=== PATIENT | male | born 1935 | race Caucasian/White ===

== ENCOUNTER 2018-02-13 13:27 | Inpatient (IN) | payer MEDICARE, OTHER, MEDICAID ==
[2018-02-13] MEDS: IPRATROPIUM (NEB) 0.5 MG/2.5 ML AMP INH (14:16)
[2018-02-13] MEDS: LEVALBUTEROL (NEB) 1.25 MG/0.5 ML AMP INH (14:16)
[2018-02-13 14:22] LABS: ADD MAN DIFF? NO
[2018-02-13 14:28] LABS: WHITE BLOOD COUNT 9.4 10^3/ul (4.8-10.8)
[2018-02-13 14:28] LABS: BASOPHIL # 0.1 10^3/ul (0.0-0.1); BASOPHILS % 1.4 % (0.0-2.0); EOSINOPHILS # 0.8 10^3/ul (0.0-0.5); EOSINOPHILS % 8.7 % (0.0-7.0); HEMATOCRIT 30.8 % (42.0-52.0); HEMOGLOBIN 9.9 g/dl (14.0-18.0); LYMPHOCYTES # 1.3 10^3/ul (0.8-2.9); LYMPHOCYTES % 13.7 % (15.0-51.0); MEAN CORPUSCULAR HEMOGLOBIN 30.4 pg (29.0-33.0); MEAN CORPUSCULAR HGB CONC 32.1 g/dl (32.0-37.0); MEAN CORPUSCULAR VOLUME 94.5 fl (82.0-101.0); MONOCYTE # 0.9 10^3/ul (0.3-0.9); MONOCYTES % 9.9 % (0.0-11.0); NEUTROPHIL # 6.2 10^3/ul (1.6-7.5); NEUTROPHILS % 66.1 % (39.0-77.0); PLATELET COUNT 335 10^3/UL (140-415); RED BLOOD COUNT 3.26 10^6/ul (4.70-6.10); RED CELL DISTRIBUTION WIDTH 13.9 % (11.5-14.5)
[2018-02-13 14:43] LABS: LACTIC ACID 1.4 mmol/L (0.5-2.0)
[2018-02-13 14:46] LABS: ADD UMIC YES; ALANINE AMINOTRANSFERASE 15 IU/L (13-69); ALBUMIN 4.3 g/dl (3.3-4.9); ALBUMIN/GLOBULIN RATIO 1.16; ALKALINE PHOSPHATASE 76 IU/L (42-121); ANION GAP 10 (5-13); ASPARTATE AMINO TRANSFERASE 29 IU/L (15-46); BILIRUBIN,INDIRECT 0.5 mg/dl (0-1.1); BILIRUBIN,TOTAL 0.5 mg/dl (0.2-1.3); BLOOD UREA NITROGEN 17 mg/dl (7-20); CALCIUM 9.2 mg/dl (8.4-10.2); CARBON DIOXIDE 28 mmol/L (21-31); CHLORIDE 105 mmol/L (97-110); CREATININE 1.33 mg/dl (0.61-1.24); GLUCOSE 95 mg/dl (70-220); POTASSIUM 4.4 mmol/L (3.5-5.1); SODIUM 143 mmol/L (135-144); UR ASCORBIC ACID NEGATIVE (NEGATIVE); UR BILIRUBIN (Dip) NEGATIVE (NEGATIVE); UR BLOOD (Dip) NEGATIVE (NEGATIVE); UR CLARITY CLEAR (CLEAR); UR COLOR YELLOW (YELLOW); UR GLUCOSE (Dip) NEGATIVE (NEGATIVE); UR KETONES (Dip) NEGATIVE (NEGATIVE); UR LEUKOCYTE ESTERASE (Dip) NEGATIVE Leu/ul (NEGATIVE); UR NITRITE (Dip) NEGATIVE (NEGATIVE); UR RBC 0 /HPF (0-5); UR SPECIFIC GRAVITY (Dip) 1.015 (1.003-1.030); UR TOTAL PROTEIN (Dip) 1+ mg/dl (NEGATIVE); UR UROBILINOGEN (Dip) NEGATIVE (NEGATIVE); UR WBC 0 /HPF (0-5)
[2018-02-13 14:47] LABS: INR 1.05; PROTIME 13.8 Sec (11.9-14.9); PT RATIO 1.1
[2018-02-13 14:48] LABS: PARTIAL THROMBOPLASTIN TIME 30.2 Sec (23.0-35.0)
[2018-02-13 14:59] LABS: TROPONIN-I 0.503 ng/ml (0.000-0.120)
[2018-02-13] MEDS: ASPIRIN 81 MG TAB PO (16:21)
[2018-02-13] MEDS: CEFEPIME 1GM/50 ML (PMX) 50 ML IVPB (16:21)
[2018-02-13] MEDS: VANCOMYCIN 1 GM (PMX) 250 ML IVPB (16:47)
[2018-02-13] MEDS ORDERED: NACL 0.9% 3 ML SYG IV (17:30)
[2018-02-13] MEDS ORDERED: ONDANSETRON 4 MG TAB PO (17:30)
[2018-02-13 18:05] LABS: D-DIMER 2689.49 ng/ml (<460)
[2018-02-13] MEDS ORDERED: hydrALAzine 20 MG INJ IV (18:30)
[2018-02-13] MEDS ORDERED: DILTIAZEM 25 MG INJ IV (18:30)
[2018-02-13] MEDS: AMLODIPINE 10 MG TAB PO (18:38)
[2018-02-13] MEDS: CEFTRIAXONE 1 GM/50 ML (PMX) 50 ML IVPB (19:28)
[2018-02-13 20:41] LABS: CREATINE KINASE 119 IU/L (23-200)
[2018-02-13] MEDS: LEVALBUTEROL (NEB) 0.63 MG/3 ML AMP HHN (20:44)
[2018-02-13 20:47] LABS: LACTIC ACID 2.2 mmol/L (0.5-2.0)
[2018-02-13 20:55] LABS: CK INDEX 4.3
[2018-02-13 21:03] LABS: CK-MB 5.13 ng/ml (0.0-2.4)
[2018-02-13 21:31] LABS: AADO2 Arterial 111.2 mmHg (7.0-24.0); Allen Test ACCEPTAB; Arterial Base Excess 1.1 mmol/L (-3.0-3); Arterial COHb 0.3 % (0.0-3.0); Arterial Fraction of Oxyhgb 94.4 % (93.0-99.0); Arterial HCO3 25.9 mmol/L (22.0-26.0); Arterial MetHb 0.3 % (0.0-1.5); Arterial Total Hemglobin 10.6 g/dl (12.0-18.0); Arterial pCO2 41.7 mmhg (35-45); MODE NASAL CANNULA
[2018-02-13] MEDS: AZITHROMYCIN 250 MG in SOD CHLORIDE 0.9% 250 ML IVPB (22:04)
[2018-02-13] MEDS: SOD CHLORIDE 0.9% 500 ML IV (22:04)
[2018-02-13] MEDS: IBUPROFEN 400 MG TAB PO (22:05)
[2018-02-13] MEDS: DILTIAZEM 30 MG TAB PO (22:05)
[2018-02-13] MEDS: APIXABAN 5 MG TABLET PO (22:06)
[2018-02-13] MEDS: FLUTICASONE 0.05% 16 GM NAS SPRAY NASAL (23:29)
[2018-02-14] MEDS: LORAZEPAM 1 MG TAB PO (00:23)
[2018-02-14] MEDS: LEVALBUTEROL (NEB) 0.63 MG/3 ML AMP HHN ×4 (01:38→20:15)
[2018-02-14 03:22] LABS: CREATINE KINASE 131 IU/L (23-200)
[2018-02-14 03:35] LABS: CK INDEX 3.5
[2018-02-14 03:36] LABS: CK-MB 4.57 ng/ml (0.0-2.4); TROPONIN-I 0.521 ng/ml (0.000-0.120)
[2018-02-14 05:51] LABS: AADO2 Arterial 115.9 mmHg (7.0-24.0); Allen Test ACCEPTAB; Arterial Base Excess -0.1 mmol/L (-3.0-3); Arterial Blood Gas Oxygen Sat 94.9 mmHG (95.0-100.0); Arterial COHb 0.1 % (0.0-3.0); Arterial Fraction of Oxyhgb 94.5 % (93.0-99.0); Arterial HCO3 24.1 mmol/L (22.0-26.0); Arterial MetHb 0.3 % (0.0-1.5); Arterial Total Hemglobin 10.8 g/dl (12.0-18.0); Arterial pCO2 37.6 mmhg (35-45); MODE NASAL CANNULA; Site Right Radial
[2018-02-14] MEDS: DILTIAZEM 30 MG TAB PO ×3 (06:13→21:03)
[2018-02-14] MEDS: FUROSEMIDE 20 MG INJ IV (06:13)
[2018-02-14] MEDS: PANTOPRAZOLE (EC) 40 MG TAB PO (06:13)
[2018-02-14 06:16] LABS: ADD MAN DIFF? NO
[2018-02-14] MEDS: ALBUTEROL/IPRATROPIUM (NEB) 3 ML AMP HHN ×4 (06:24→20:00)
[2018-02-14 06:28] LABS: WHITE BLOOD COUNT 11.6 10^3/ul (4.8-10.8)
[2018-02-14 06:28] LABS: BASOPHIL # 0.1 10^3/ul (0.0-0.1); BASOPHILS % 0.9 % (0.0-2.0); EOSINOPHILS # 0.6 10^3/ul (0.0-0.5); EOSINOPHILS % 5.2 % (0.0-7.0); HEMATOCRIT 28.8 % (42.0-52.0); HEMOGLOBIN 9.1 g/dl (14.0-18.0); LYMPHOCYTES # 1.3 10^3/ul (0.8-2.9); LYMPHOCYTES % 10.9 % (15.0-51.0); MEAN CORPUSCULAR HEMOGLOBIN 29.9 pg (29.0-33.0); MEAN CORPUSCULAR HGB CONC 31.6 g/dl (32.0-37.0); MEAN CORPUSCULAR VOLUME 94.7 fl (82.0-101.0); MEAN PLATELET VOLUME 9.3 fl (7.4-10.4); MONOCYTE # 1.5 10^3/ul (0.3-0.9); MONOCYTES % 12.6 % (0.0-11.0); NEUTROPHIL # 8.1 10^3/ul (1.6-7.5); NEUTROPHILS % 69.8 % (39.0-77.0); PLATELET COUNT 315 10^3/UL (140-415); RED BLOOD COUNT 3.04 10^6/ul (4.70-6.10); RED CELL DISTRIBUTION WIDTH 14.2 % (11.5-14.5)
[2018-02-14 06:38] LABS: LACTIC ACID 1.8 mmol/L (0.5-2.0)
[2018-02-14] MEDS ORDERED: FUROSEMIDE 40 MG INJ (06:43)
[2018-02-14] MEDS: FUROSEMIDE 40 MG INJ IV ×2 (06:57→13:47)
[2018-02-14 07:19] LABS: ALANINE AMINOTRANSFERASE 25 IU/L (13-69); ALBUMIN 4.1 g/dl (3.3-4.9); ALBUMIN/GLOBULIN RATIO 1.36; ALKALINE PHOSPHATASE 69 IU/L (42-121); ANION GAP 10 (5-13); ASPARTATE AMINO TRANSFERASE 29 IU/L (15-46); BILIRUBIN,INDIRECT 0.4 mg/dl (0-1.1); BILIRUBIN,TOTAL 0.4 mg/dl (0.2-1.3); BLOOD UREA NITROGEN 18 mg/dl (7-20); CALCIUM 8.6 mg/dl (8.4-10.2); CARBON DIOXIDE 28 mmol/L (21-31); CHLORIDE 105 mmol/L (97-110); CHOL/HDL RATIO 4.2 RATIO; CHOLESTEROL 149 mg/dl (100-200); GLUCOSE 106 mg/dl (70-220); HDL CHOLESTEROL 35 mg/dl (31-75); LDL CHOLESTEROL,CALCULATED 93 mg/dl; PHOSPHORUS 3.9 mg/dl (2.5-4.9); POTASSIUM 3.8 mmol/L (3.5-5.1); SODIUM 143 mmol/L (135-144); TOTAL PROTEIN 7.1 g/dl (6.1-8.1); TRIGLYCERIDES 105 mg/dl (0-149)
[2018-02-14 08:28] LABS: AADO2 Arterial 171.7 mmHg (7.0-24.0); Allen Test ACCEPTAB; Arterial Base Excess -1.9 mmol/L (-3.0-3); Arterial Blood Gas Oxygen Sat 95.4 mmHG (95.0-100.0); Arterial COHb 0.3 % (0.0-3.0); Arterial Fraction of Oxyhgb 95.1 % (93.0-99.0); Arterial HCO3 21.6 mmol/L (22.0-26.0); Arterial MetHb 0 % (0.0-1.5); Arterial Total Hemglobin 10.8 g/dl (12.0-18.0); Arterial pCO2 32.5 mmhg (35-45); Blood Gas IEPAP 15/5; Blood Gas PS 10; MODE MASK - BIPAP; Site Right Radial
[2018-02-14] MEDS: AMLODIPINE 10 MG TAB PO (08:59)
[2018-02-14] MEDS: APIXABAN 5 MG TABLET PO ×2 (08:59→21:02)
[2018-02-14] MEDS: ASPIRIN (EC) 81 MG TAB PO (09:00)
[2018-02-14] MEDS: FLUTICASONE 0.05% 16 GM NAS SPRAY NASAL ×2 (09:01→20:25)
[2018-02-14] MEDS: ACETAMINOPHEN 325 MG TAB PO (09:39)
[2018-02-14] MEDS: BICALUTAMIDE 50 MG TAB PO (10:50)
[2018-02-14 11:20] LABS: LIPASE 21 U/L (23-300)
[2018-02-14] MEDS: METHYLPREDNISOLONE 125 MG INJ IV (13:46)
[2018-02-14] MEDS: OXYCODONE/ACETAMINOPHEN (5/325) TAB PO (13:48)
[2018-02-14] MEDS: METHYLPREDNISOLONE 40 MG INJ IV ×2 (15:58→21:03)
[2018-02-14] MEDS ORDERED: VANCOMYCIN IV PER PHARMACY XX (17:30)
[2018-02-14] MEDS: CEFTRIAXONE 1 GM/50 ML (PMX) 50 ML IVPB (18:18)
[2018-02-15] MEDS: ALBUTEROL/IPRATROPIUM (NEB) 3 ML AMP HHN ×3 (01:23→19:57)
[2018-02-15] MEDS: LEVALBUTEROL (NEB) 0.63 MG/3 ML AMP HHN ×2 (01:29→08:01)
[2018-02-15] MEDS: LORAZEPAM 1 MG TAB PO (02:09)
[2018-02-15] MEDS: METHYLPREDNISOLONE 40 MG INJ IV ×2 (05:50→21:21)
[2018-02-15] MEDS: DILTIAZEM 30 MG TAB PO ×2 (05:51→14:59)
[2018-02-15] MEDS: PANTOPRAZOLE (EC) 40 MG TAB PO (05:51)
[2018-02-15 06:34] LABS: ADD MAN DIFF? NO
[2018-02-15 06:40] LABS: BASOPHILS % 0.1 % (0.0-2.0); HEMATOCRIT 29.7 % (42.0-52.0); HEMOGLOBIN 9.7 g/dl (14.0-18.0); LYMPHOCYTES # 0.8 10^3/ul (0.8-2.9); MEAN CORPUSCULAR HGB CONC 32.7 g/dl (32.0-37.0); MEAN PLATELET VOLUME 9.3 fl (7.4-10.4); MONOCYTE # 0.2 10^3/ul (0.3-0.9); MONOCYTES % 1.5 % (0.0-11.0); NEUTROPHIL # 12.2 10^3/ul (1.6-7.5); NEUTROPHILS % 91.4 % (39.0-77.0); PLATELET COUNT 338 10^3/UL (140-415); RED BLOOD COUNT 3.23 10^6/ul (4.70-6.10); RED CELL DISTRIBUTION WIDTH 14.5 % (11.5-14.5)
[2018-02-15 06:40] LABS: WHITE BLOOD COUNT 13.4 10^3/ul (4.8-10.8)
[2018-02-15 07:04] LABS: PHOSPHORUS 4.5 mg/dl (2.5-4.9)
[2018-02-15 07:06] LABS: ANION GAP 16 (5-13); BLOOD UREA NITROGEN 28 mg/dl (7-20); CALCIUM 9.7 mg/dl (8.4-10.2); CARBON DIOXIDE 27 mmol/L (21-31); CHLORIDE 99 mmol/L (97-110); CREATININE 1.75 mg/dl (0.61-1.24); GLUCOSE 132 mg/dl (70-220); POTASSIUM 3.7 mmol/L (3.5-5.1); SODIUM 142 mmol/L (135-144)
[2018-02-15] MEDS: ASPIRIN (EC) 81 MG TAB PO (07:46)
[2018-02-15] MEDS: APIXABAN 5 MG TABLET PO ×2 (07:46→21:21)
[2018-02-15] MEDS: FUROSEMIDE 40 MG INJ IV (07:47)
[2018-02-15] MEDS: AMLODIPINE 10 MG TAB PO (07:47)
[2018-02-15] MEDS: BICALUTAMIDE 50 MG TAB PO (07:52)
[2018-02-15] MEDS: OXYCODONE/ACETAMINOPHEN (5/325) TAB PO (12:56)
[2018-02-15] MEDS: FLUTICASONE 0.05% 16 GM NAS SPRAY NASAL (14:56)
[2018-02-15] MEDS ORDERED: VANCOMYCIN 1 GM 250 ML IVPB (16:00)
[2018-02-15] MEDS: CEFTRIAXONE 1 GM/50 ML (PMX) 50 ML IVPB (17:49)
[2018-02-15] MEDS: DOCUSATE SODIUM 100 MG CAP PO ×2 (17:49→21:21)
[2018-02-15] MEDS: POLYETHYLENE GLYCOL 17 GM PACKET PO (18:34)
[2018-02-15] MEDS: DILTIAZEM 60 MG TAB PO (22:00)
[2018-02-16] MEDS: DILTIAZEM 60 MG TAB PO ×4 (00:33→21:28)
[2018-02-16] MEDS: ALBUTEROL/IPRATROPIUM (NEB) 3 ML AMP HHN ×4 (01:38→20:35)
[2018-02-16] MEDS: LORAZEPAM 1 MG TAB PO ×2 (01:59→23:58)
[2018-02-16] MEDS: PANTOPRAZOLE (EC) 40 MG TAB PO (05:23)
[2018-02-16] MEDS: VANCOMYCIN 1 GM 250 ML IVPB (05:23)
[2018-02-16 06:53] LABS: ABNORMAL IP MESSAGE 1; HEMATOCRIT 28.4 % (42.0-52.0); HEMOGLOBIN 9.2 g/dl (14.0-18.0); MEAN CORPUSCULAR HEMOGLOBIN 29.7 pg (29.0-33.0); MEAN CORPUSCULAR HGB CONC 32.4 g/dl (32.0-37.0); MEAN CORPUSCULAR VOLUME 91.6 fl (82.0-101.0); MEAN PLATELET VOLUME 9.3 fl (7.4-10.4); PLATELET COUNT 331 10^3/UL (140-415); POSITIVE DIFF @See below; RED CELL DISTRIBUTION WIDTH 14.6 % (11.5-14.5)
[2018-02-16 06:56] LABS: ADD MAN DIFF? YES
[2018-02-16 07:09] LABS: ANION GAP 14 (5-13); BLOOD UREA NITROGEN 50 mg/dl (7-20); CALCIUM 9.1 mg/dl (8.4-10.2); CARBON DIOXIDE 28 mmol/L (21-31); CHLORIDE 96 mmol/L (97-110); CREATININE 2.14 mg/dl (0.61-1.24); GLUCOSE 137 mg/dl (70-220); POTASSIUM 3.4 mmol/L (3.5-5.1); SODIUM 138 mmol/L (135-144)
[2018-02-16 07:34] LABS: PHOSPHORUS 5.1 mg/dl (2.5-4.9)
[2018-02-16 07:34] LABS: MAGNESIUM 2.2 mg/dl (1.7-2.5)
[2018-02-16] MEDS: DOCUSATE SODIUM 100 MG CAP PO ×2 (09:24→21:27)
[2018-02-16] MEDS: POLYETHYLENE GLYCOL 17 GM PACKET PO (09:24)
[2018-02-16] MEDS: POTASSIUM CHLORIDE (SR) 20 MEQ TAB PO (09:24)
[2018-02-16] MEDS: ASPIRIN (EC) 81 MG TAB PO (09:25)
[2018-02-16] MEDS: APIXABAN 5 MG TABLET PO ×2 (09:25→21:28)
[2018-02-16] MEDS: METHYLPREDNISOLONE 40 MG INJ IV ×2 (09:26→21:27)
[2018-02-16 09:34] LABS: ANISOCYTOSIS 1+ (0-0); BAND NEUTROPHILS #M 1.3 10^3/ul (0.0-0.6); BAND NEUTROPHILS % (M) 7 % (0-4); ERYTHROBLAST% (NRBC) (M) 1 % (0-0); LYMPHOCYTES #M 0.7 10^3/ul (0.8-2.9); LYMPHOCYTES % (M) 4 % (15-51); MONOCYTE #M 0.1 10^3/ul (0.3-0.9); MONOCYTES % (M) 1 % (0-11); OVALOCYTES 1+ (0-0); PLATELET ESTIMATE NORMAL; POIKILOCYTOSIS 1+ (0-0); POLYCHROMASIA 1+ (0-0); SEGMENTED NEUTROPHILS (M) % 88 % (39-77); SMUDGE%M 5 % (0-0)
[2018-02-16] MEDS: BICALUTAMIDE 50 MG TAB PO (09:34)
[2018-02-16] MEDS: CEFEPIME 1GM/50 ML (PMX) 50 ML IVPB (13:58)
[2018-02-17] MEDS: ALBUTEROL/IPRATROPIUM (NEB) 3 ML AMP HHN ×4 (01:48→20:19)
[2018-02-17 06:25] LABS: ADD MAN DIFF? NO
[2018-02-17 06:29] LABS: WHITE BLOOD COUNT 21.1 10^3/ul (4.8-10.8)
[2018-02-17 06:29] LABS: ABNORMAL IP MESSAGE 1; BASOPHILS % 0.1 % (0.0-2.0); HEMATOCRIT 29.4 % (42.0-52.0); HEMOGLOBIN 9.5 g/dl (14.0-18.0); LYMPHOCYTES # 0.4 10^3/ul (0.8-2.9); LYMPHOCYTES % 1.8 % (15.0-51.0); MEAN CORPUSCULAR HGB CONC 32.3 g/dl (32.0-37.0); MEAN CORPUSCULAR VOLUME 92.7 fl (82.0-101.0); MONOCYTE # 0.9 10^3/ul (0.3-0.9); NEUTROPHIL # 19.3 10^3/ul (1.6-7.5); NEUTROPHILS % 91.2 % (39.0-77.0); PLATELET COUNT 357 10^3/UL (140-415); POSITIVE DIFF @See below; RED BLOOD COUNT 3.17 10^6/ul (4.70-6.10); RED CELL DISTRIBUTION WIDTH 14.6 % (11.5-14.5)
[2018-02-17] MEDS: PANTOPRAZOLE (EC) 40 MG TAB PO (06:29)
[2018-02-17] MEDS: DILTIAZEM 60 MG TAB PO ×3 (06:29→22:18)
[2018-02-17 06:52] LABS: MAGNESIUM 2.3 mg/dl (1.7-2.5)
[2018-02-17 06:52] LABS: PHOSPHORUS 3.9 mg/dl (2.5-4.9)
[2018-02-17 07:08] LABS: ANION GAP 13 (5-13); BLOOD UREA NITROGEN 52 mg/dl (7-20); CALCIUM 9.1 mg/dl (8.4-10.2); CARBON DIOXIDE 27 mmol/L (21-31); CHLORIDE 99 mmol/L (97-110); CREATININE 1.77 mg/dl (0.61-1.24); GLUCOSE 144 mg/dl (70-220); POTASSIUM 3.7 mmol/L (3.5-5.1); SODIUM 139 mmol/L (135-144)
[2018-02-17] MEDS: METHYLPREDNISOLONE 40 MG INJ IV ×2 (09:38→20:25)
[2018-02-17] MEDS: DOCUSATE SODIUM 100 MG CAP PO ×2 (09:40→20:25)
[2018-02-17] MEDS: ASPIRIN (EC) 81 MG TAB PO (09:41)
[2018-02-17] MEDS: APIXABAN 5 MG TABLET PO ×2 (09:41→20:25)
[2018-02-17] MEDS: POLYETHYLENE GLYCOL 17 GM PACKET PO (09:41)
[2018-02-17] MEDS: BICALUTAMIDE 50 MG TAB PO (09:55)
[2018-02-17] MEDS: OXYCODONE/ACETAMINOPHEN (5/325) TAB PO (11:49)
[2018-02-17] MEDS: CEFEPIME 1GM/50 ML (PMX) 50 ML IVPB (14:39)
[2018-02-18] MEDS: ALBUTEROL/IPRATROPIUM (NEB) 3 ML AMP HHN ×4 (01:48→20:40)
[2018-02-18] MEDS: DILTIAZEM 60 MG TAB PO ×3 (05:25→22:00)
[2018-02-18] MEDS: PANTOPRAZOLE (EC) 40 MG TAB PO (05:26)
[2018-02-18 06:54] LABS: ADD MAN DIFF? NO
[2018-02-18 07:00] LABS: ABNORMAL IP MESSAGE 1; BASOPHILS % 0.2 % (0.0-2.0); HEMATOCRIT 32.1 % (42.0-52.0); HEMOGLOBIN 10.2 g/dl (14.0-18.0); LYMPHOCYTES # 0.3 10^3/ul (0.8-2.9); LYMPHOCYTES % 1.8 % (15.0-51.0); MEAN CORPUSCULAR HGB CONC 31.8 g/dl (32.0-37.0); MEAN CORPUSCULAR VOLUME 94.4 fl (82.0-101.0); MEAN PLATELET VOLUME 9.2 fl (7.4-10.4); MONOCYTE # 0.7 10^3/ul (0.3-0.9); MONOCYTES % 3.7 % (0.0-11.0); NEUTROPHIL # 16.5 10^3/ul (1.6-7.5); NEUTROPHILS % 91.7 % (39.0-77.0); PLATELET COUNT 375 10^3/UL (140-415); POSITIVE DIFF @See below; RED CELL DISTRIBUTION WIDTH 14.9 % (11.5-14.5)
[2018-02-18 07:51] LABS: ANION GAP 14 (5-13); BLOOD UREA NITROGEN 50 mg/dl (7-20); CALCIUM 9.2 mg/dl (8.4-10.2); CARBON DIOXIDE 25 mmol/L (21-31); CHLORIDE 102 mmol/L (97-110); CREATININE 1.58 mg/dl (0.61-1.24); GLUCOSE 164 mg/dl (70-220); MAGNESIUM 2.4 mg/dl (1.7-2.5); POTASSIUM 4.4 mmol/L (3.5-5.1); SODIUM 141 mmol/L (135-144)
[2018-02-18 07:51] LABS: PHOSPHORUS 3.9 mg/dl (2.5-4.9)
[2018-02-18] MEDS: ASPIRIN (EC) 81 MG TAB PO (08:11)
[2018-02-18] MEDS: APIXABAN 5 MG TABLET PO ×2 (08:11→21:06)
[2018-02-18] MEDS: METHYLPREDNISOLONE 40 MG INJ IV (08:12)
[2018-02-18] MEDS: POLYETHYLENE GLYCOL 17 GM PACKET PO (08:12)
[2018-02-18] MEDS: DOCUSATE SODIUM 100 MG CAP PO ×2 (08:12→21:06)
[2018-02-18] MEDS: BICALUTAMIDE 50 MG TAB PO (08:18)
[2018-02-18] MEDS: OXYCODONE/ACETAMINOPHEN (5/325) TAB PO (11:50)
[2018-02-18] MEDS: CEFEPIME 1GM/50 ML (PMX) 50 ML IVPB (14:12)
[2018-02-18] MEDS ORDERED: ALBUTEROL HFA 8 GM INHALER INH (22:30)
[2018-02-18] MEDS ORDERED: IBUPROFEN 800 MG TAB PO (22:30)
[2018-02-18] MEDS ORDERED: ALBUTEROL 0.083% (NEB) 2.5 MG/3 ML AMP NEB (22:30)
[2018-02-19] MEDS: OXYCODONE/ACETAMINOPHEN (5/325) TAB PO (01:12)
[2018-02-19] MEDS: ALBUTEROL/IPRATROPIUM (NEB) 3 ML AMP HHN ×4 (01:28→20:03)
[2018-02-19] MEDS: PANTOPRAZOLE (EC) 40 MG TAB PO (05:59)
[2018-02-19] MEDS: DILTIAZEM 30 MG TAB PO ×3 (06:00→22:45)
[2018-02-19 06:47] LABS: ANION GAP 10 (5-13); BLOOD UREA NITROGEN 50 mg/dl (7-20); CALCIUM 8.6 mg/dl (8.4-10.2); CARBON DIOXIDE 28 mmol/L (21-31); CHLORIDE 102 mmol/L (97-110); CREATININE 1.42 mg/dl (0.61-1.24); GLUCOSE 125 mg/dl (70-220); SODIUM 140 mmol/L (135-144)
[2018-02-19] MEDS: METOPROLOL (XL) 25 MG TAB PO (08:57)
[2018-02-19] MEDS: ASPIRIN (EC) 81 MG TAB PO (08:59)
[2018-02-19] MEDS: APIXABAN 5 MG TABLET PO ×2 (08:59→22:44)
[2018-02-19] MEDS: POLYETHYLENE GLYCOL 17 GM PACKET PO (08:59)
[2018-02-19] MEDS: DOCUSATE SODIUM 100 MG CAP PO ×2 (08:59→22:43)
[2018-02-19] MEDS ORDERED: NON-FORMULARY/PATIENT OWN MED (Umeclidinium Bromide (Incruse Ellipta) 62.5 MCG) IH (09:00)
[2018-02-19] MEDS: BICALUTAMIDE 50 MG TAB PO (14:15)
[2018-02-19] MEDS: METHYLPREDNISOLONE 40 MG INJ IV (14:18)
[2018-02-19] MEDS: CEFEPIME 1GM/50 ML (PMX) 50 ML IVPB (14:55)
[2018-02-19] MEDS ORDERED: SENNA TAB PO (16:30)
[2018-02-19] MEDS: BISACODYL 10 MG SUPP PR (18:42)
[2018-02-19] MEDS: LORAZEPAM 1 MG TAB PO (22:43)
[2018-02-20] MEDS: ALBUTEROL/IPRATROPIUM (NEB) 3 ML AMP HHN ×3 (02:00→13:56)
[2018-02-20 05:01] LABS: ADD MAN DIFF? NO
[2018-02-20 05:11] LABS: WHITE BLOOD COUNT 15.1 10^3/ul (4.8-10.8)
[2018-02-20 05:11] LABS: ABNORMAL IP MESSAGE 1; BASOPHILS % 0.3 % (0.0-2.0); HEMATOCRIT 30.2 % (42.0-52.0); HEMOGLOBIN 9.7 g/dl (14.0-18.0); LYMPHOCYTES # 0.5 10^3/ul (0.8-2.9); LYMPHOCYTES % 3.1 % (15.0-51.0); MEAN CORPUSCULAR HEMOGLOBIN 29.8 pg (29.0-33.0); MEAN CORPUSCULAR HGB CONC 32.1 g/dl (32.0-37.0); MEAN CORPUSCULAR VOLUME 92.9 fl (82.0-101.0); MEAN PLATELET VOLUME 9.4 fl (7.4-10.4); MONOCYTE # 1.2 10^3/ul (0.3-0.9); MONOCYTES % 8.1 % (0.0-11.0); NEUTROPHIL # 12.7 10^3/ul (1.6-7.5); PLATELET COUNT 354 10^3/UL (140-415); POSITIVE DIFF @See below; RED BLOOD COUNT 3.25 10^6/ul (4.70-6.10); RED CELL DISTRIBUTION WIDTH 14.7 % (11.5-14.5)
[2018-02-20 05:22] LABS: PHOSPHORUS 3.6 mg/dl (2.5-4.9)
[2018-02-20 05:22] LABS: MAGNESIUM 2.5 mg/dl (1.7-2.5)
[2018-02-20 05:27] LABS: ANION GAP 9 (5-13); BLOOD UREA NITROGEN 48 mg/dl (7-20); CALCIUM 8.5 mg/dl (8.4-10.2); CARBON DIOXIDE 29 mmol/L (21-31); CHLORIDE 101 mmol/L (97-110); GLUCOSE 104 mg/dl (70-220); POTASSIUM 4.2 mmol/L (3.5-5.1); SODIUM 139 mmol/L (135-144)
[2018-02-20] MEDS: PANTOPRAZOLE (EC) 40 MG TAB PO (06:48)
[2018-02-20] MEDS: DILTIAZEM 30 MG TAB PO ×2 (06:49→14:46)
[2018-02-20] MEDS: POLYETHYLENE GLYCOL 17 GM PACKET PO (08:46)
[2018-02-20] MEDS: predniSONE 10 MG TAB PO (08:46)
[2018-02-20] MEDS: DOCUSATE SODIUM 100 MG CAP PO (08:46)
[2018-02-20] MEDS: ASPIRIN (EC) 81 MG TAB PO (08:46)
[2018-02-20] MEDS: METOPROLOL (XL) 25 MG TAB PO (08:47)
[2018-02-20] MEDS: APIXABAN 5 MG TABLET PO (08:47)
[2018-02-20] MEDS: BICALUTAMIDE 50 MG TAB PO (08:49)
[2018-02-20] MEDS: CEFEPIME 1GM/50 ML (PMX) 50 ML IVPB (15:57)
== END 2018-02-20 19:35 | DRG 190 ==
LOC: MS1 02-18 23:20 → E/R 13:27 → TEL 16:11
PROC: 4A133R1 Monitoring of Arterial Saturation, Peripheral, Percutaneous Approach (ICD-10-PCS; 2018-02-13)
PROC: 5A09357 Assistance with Respiratory Ventilation, Less than 24 Consecutive Hours, Continuous Positive Airway Pressure (ICD-10-PCS; principal; 2018-02-14)
DX: J44.1 Chronic obstructive pulmonary disease with (acute) exacerbation (principal); I21.A1 Myocardial infarction type 2; J96.21 Acute and chronic respiratory failure with hypoxia; J18.9 Pneumonia, unspecified organism; N17.9 Acute kidney failure, unspecified; I13.0 Hypertensive heart and chronic kidney disease with heart failure and stage 1 through stage 4 chronic kidney disease, or unspecified chronic kidney disease; R78.81 Bacteremia; C61 Malignant neoplasm of prostate; J44.0 Chronic obstructive pulmonary disease with (acute) lower respiratory infection; E78.5 Hyperlipidemia, unspecified; N18.9 Chronic kidney disease, unspecified; D64.9 Anemia, unspecified; I48.91 Unspecified atrial fibrillation; K59.00 Constipation, unspecified; I50.9 Heart failure, unspecified; Z99.81 Dependence on supplemental oxygen; B95.7 Other staphylococcus as the cause of diseases classified elsewhere; Z79.818 Long term (current) use of other agents affecting estrogen receptors and estrogen levels; Z87.891 Personal history of nicotine dependence; Z86.11 Personal history of tuberculosis; T50.2X5A Adverse effect of carbonic-anhydrase inhibitors, benzothiadiazides and other diuretics, initial encounter; B96.5 Pseudomonas (aeruginosa) (mallei) (pseudomallei) as the cause of diseases classified elsewhere
CPT/HCPCS: 36415; 36600; 71045; 76700; 80048; 80053; 80061; 81001; 82550; 82553; 82803; 83605; 83690; 83735; 84100; 84443; 84484; 85025; 85378; 85610; 85730; 87040; 87070; 87081; 87086; 93005; 93306; 94640; 94644; 94660; 94664; 97116; 97161; 97530; 99291-25

== ENCOUNTER 2018-03-06 19:12 | Emergency (ER) | payer MEDICARE, OTHER ==
[2018-03-06 20:16] LABS: ADD MAN DIFF? NO
[2018-03-06 20:18] LABS: BASOPHIL # 0.1 10^3/ul (0.0-0.1); BASOPHILS % 0.6 % (0.0-2.0); EOSINOPHILS # 0.6 10^3/ul (0.0-0.5); EOSINOPHILS % 6.9 % (0.0-7.0); HEMATOCRIT 30.8 % (42.0-52.0); HEMOGLOBIN 9.5 g/dl (14.0-18.0); LYMPHOCYTES # 1.3 10^3/ul (0.8-2.9); LYMPHOCYTES % 15.7 % (15.0-51.0); MEAN CORPUSCULAR HEMOGLOBIN 30.2 pg (29.0-33.0); MEAN CORPUSCULAR HGB CONC 30.8 g/dl (32.0-37.0); MEAN CORPUSCULAR VOLUME 97.8 fl (82.0-101.0); MEAN PLATELET VOLUME 9.5 fl (7.4-10.4); MONOCYTE # 1.1 10^3/ul (0.3-0.9); NEUTROPHIL # 5.3 10^3/ul (1.6-7.5); NEUTROPHILS % 63.4 % (39.0-77.0); PLATELET COUNT 169 10^3/UL (140-415); RED BLOOD COUNT 3.15 10^6/ul (4.70-6.10)
[2018-03-06 20:18] LABS: WHITE BLOOD COUNT 8.4 10^3/ul (4.8-10.8)
[2018-03-06] MEDS: SOD CHLORIDE 0.9% 1,000 ML IV (20:22)
[2018-03-06 20:34] LABS: ALANINE AMINOTRANSFERASE 26 IU/L (13-69); ALBUMIN/GLOBULIN RATIO 1.48; ALKALINE PHOSPHATASE 73 IU/L (42-121); ANION GAP 13 (5-13); ASPARTATE AMINO TRANSFERASE 23 IU/L (15-46); BILIRUBIN,INDIRECT 0.2 mg/dl (0-1.1); BILIRUBIN,TOTAL 0.2 mg/dl (0.2-1.3); BLOOD UREA NITROGEN 21 mg/dl (7-20); CALCIUM 8.9 mg/dl (8.4-10.2); CARBON DIOXIDE 33 mmol/L (21-31); CHLORIDE 97 mmol/L (97-110); CREATININE 1.34 mg/dl (0.61-1.24); GLUCOSE 102 mg/dl (70-220); POTASSIUM 4.8 mmol/L (3.5-5.1); SODIUM 143 mmol/L (135-144); TOTAL PROTEIN 6.7 g/dl (6.1-8.1)
[2018-03-06 20:39] LABS: INR 1.04; PROTIME 13.7 Sec (11.9-14.9); PT RATIO 1.1
[2018-03-06 20:40] LABS: PARTIAL THROMBOPLASTIN TIME 35.7 Sec (23.0-35.0)
[2018-03-06 20:46] LABS: TROPONIN-I 0.017 ng/ml (0.000-0.120)
[2018-03-06 21:47] LABS: ADD UMIC NO; UR ASCORBIC ACID NEGATIVE (NEGATIVE); UR BILIRUBIN (Dip) NEGATIVE (NEGATIVE); UR BLOOD (Dip) NEGATIVE (NEGATIVE); UR CLARITY CLEAR (CLEAR); UR COLOR YELLOW (YELLOW); UR GLUCOSE (Dip) NEGATIVE (NEGATIVE); UR KETONES (Dip) NEGATIVE (NEGATIVE); UR LEUKOCYTE ESTERASE (Dip) NEGATIVE Leu/ul (NEGATIVE); UR NITRITE (Dip) NEGATIVE (NEGATIVE); UR SPECIFIC GRAVITY (Dip) 1.014 (1.003-1.030); UR TOTAL PROTEIN (Dip) NEGATIVE (NEGATIVE); UR UROBILINOGEN (Dip) NEGATIVE (NEGATIVE)
== END 2018-03-06 22:40 | disposition home or self-care (01) ==
LOC: E/R 19:12
DX: I48.2 Chronic atrial fibrillation (principal); R55 Syncope and collapse; E86.0 Dehydration; J44.9 Chronic obstructive pulmonary disease, unspecified; N18.9 Chronic kidney disease, unspecified; I12.9 Hypertensive chronic kidney disease with stage 1 through stage 4 chronic kidney disease, or unspecified chronic kidney disease; Z87.891 Personal history of nicotine dependence; Z79.01 Long term (current) use of anticoagulants; Z85.46 Personal history of malignant neoplasm of prostate
CPT/HCPCS: 36415; 70450; 71045; 80053; 81003; 83605; 84484; 85025; 85610; 85730; 93005; 99285-25

== ENCOUNTER 2018-05-14 13:59 | Inpatient (IN) | payer MEDICARE, OTHER ==
[2018-05-14 14:52] LABS: ADD MAN DIFF? NO
[2018-05-14 15:05] LABS: BASOPHIL # 0.1 10^3/ul (0.0-0.1); BASOPHILS % 1.1 % (0.0-2.0); EOSINOPHILS % 10.5 % (0.0-7.0); HEMATOCRIT 32.5 % (42.0-52.0); HEMOGLOBIN 10.3 g/dl (14.0-18.0); LYMPHOCYTES # 1.5 10^3/ul (0.8-2.9); LYMPHOCYTES % 16.5 % (15.0-51.0); MEAN CORPUSCULAR HEMOGLOBIN 29.7 pg (29.0-33.0); MEAN CORPUSCULAR HGB CONC 31.7 g/dl (32.0-37.0); MEAN CORPUSCULAR VOLUME 93.7 fl (82.0-101.0); MEAN PLATELET VOLUME 9.4 fl (7.4-10.4); MONOCYTE # 0.9 10^3/ul (0.3-0.9); MONOCYTES % 9.7 % (0.0-11.0); NEUTROPHIL # 5.7 10^3/ul (1.6-7.5); NEUTROPHILS % 61.7 % (39.0-77.0); PLATELET COUNT 343 10^3/UL (140-415); RED BLOOD COUNT 3.47 10^6/ul (4.70-6.10); RED CELL DISTRIBUTION WIDTH 14.9 % (11.5-14.5)
[2018-05-14 15:05] LABS: WHITE BLOOD COUNT 9.3 10^3/ul (4.8-10.8)
[2018-05-14] MEDS: IPRATROPIUM (NEB) 0.5 MG/2.5 ML AMP INH (15:14)
[2018-05-14] MEDS: ALBUTEROL 0.5% (NEB) 2.5 MG/0.5 ML AMP INH (15:14)
[2018-05-14 15:24] LABS: ALANINE AMINOTRANSFERASE 10 IU/L (13-69); ALBUMIN 4.6 g/dl (3.3-4.9); ALBUMIN/GLOBULIN RATIO 1.21; ALKALINE PHOSPHATASE 89 IU/L (42-121); ANION GAP 12 (5-13); ASPARTATE AMINO TRANSFERASE 26 IU/L (15-46); BILIRUBIN,INDIRECT 0.2 mg/dl (0-1.1); BILIRUBIN,TOTAL 0.2 mg/dl (0.2-1.3); BLOOD UREA NITROGEN 21 mg/dl (7-20); CALCIUM 10.2 mg/dl (8.4-10.2); CARBON DIOXIDE 28 mmol/L (21-31); CHLORIDE 105 mmol/L (97-110); CREATININE 1.73 mg/dl (0.61-1.24); GLUCOSE 118 mg/dl (70-220); POTASSIUM 3.8 mmol/L (3.5-5.1); SODIUM 145 mmol/L (135-144); TOTAL PROTEIN 8.4 g/dl (6.1-8.1)
[2018-05-14 15:28] LABS: INR 0.93; PROTIME 12.6 Sec (11.9-14.9)
[2018-05-14 15:29] LABS: PARTIAL THROMBOPLASTIN TIME 29.9 Sec (23.0-35.0)
[2018-05-14 15:36] LABS: B-TYPE NATRIURETIC PEPTIDE 6090 PG/ML (0-450); TROPONIN-I < 0.012 ng/ml (0.000-0.120)
[2018-05-14] MEDS: FUROSEMIDE 20 MG INJ IV (16:27)
[2018-05-14] MEDS ORDERED: ACETAMINOPHEN 325 MG TAB PO (17:00)
[2018-05-14] MEDS ORDERED: ONDANSETRON 4 MG INJ IV ×2 (17:00→21:30)
[2018-05-14] MEDS: PIPER-TAZO 3.375 GM IV (PMX) 100 ML IVPB ×2 (17:23→23:07)
[2018-05-14] MEDS: METHYLPREDNISOLONE 125 MG INJ IV ×2 (17:23→22:40)
[2018-05-14] MEDS: NICARDipine HCL 30 MG CAPSULE PO (17:53)
[2018-05-14] MEDS ORDERED: ALBUTEROL/IPRATROPIUM (NEB) 3 ML AMP HHN (21:30)
[2018-05-14 21:46] LABS: AADO2 Arterial 80.5 mmHg (7.0-24.0); Allen Test ACCEPTAB; Arterial Base Excess 3.9 mmol/L (-3.0-3); Arterial Blood Gas Oxygen Sat 96.7 mmHG (95.0-100.0); Arterial COHb 0.3 % (0.0-3.0); Arterial Fraction of Oxyhgb 96.2 % (93.0-99.0); Arterial HCO3 27.7 mmol/L (22.0-26.0); Arterial MetHb 0.2 % (0.0-1.5); Arterial pCO2 38.7 mmhg (35-45); MODE NASAL CANNULA; Site Right Radial
[2018-05-14] MEDS: ACETAMINOPHEN 325 MG TAB PO (22:41)
[2018-05-15] MEDS: ALBUTEROL/IPRATROPIUM (NEB) 3 ML AMP HHN ×6 (01:18→20:47)
[2018-05-15 06:22] LABS: ADD MAN DIFF? NO
[2018-05-15 06:34] LABS: BASOPHILS % 0.3 % (0.0-2.0); HEMATOCRIT 30.4 % (42.0-52.0); HEMOGLOBIN 9.7 g/dl (14.0-18.0); LYMPHOCYTES # 0.7 10^3/ul (0.8-2.9); LYMPHOCYTES % 8.9 % (15.0-51.0); MEAN CORPUSCULAR HEMOGLOBIN 28.8 pg (29.0-33.0); MEAN CORPUSCULAR HGB CONC 31.9 g/dl (32.0-37.0); MEAN CORPUSCULAR VOLUME 90.2 fl (82.0-101.0); MEAN PLATELET VOLUME 9.5 fl (7.4-10.4); MONOCYTE # 0.1 10^3/ul (0.3-0.9); MONOCYTES % 1.1 % (0.0-11.0); NEUTROPHILS % 89.1 % (39.0-77.0); PLATELET COUNT 347 10^3/UL (140-415); RED BLOOD COUNT 3.37 10^6/ul (4.70-6.10)
[2018-05-15 06:34] LABS: WHITE BLOOD COUNT 7.9 10^3/ul (4.8-10.8)
[2018-05-15] MEDS: PANTOPRAZOLE 40 MG INJ IV (06:35)
[2018-05-15] MEDS: METHYLPREDNISOLONE 125 MG INJ IV ×3 (06:39→20:19)
[2018-05-15] MEDS: PIPER-TAZO 3.375 GM IV (PMX) 100 ML IVPB ×3 (06:39→20:19)
[2018-05-15 06:54] LABS: ANION GAP 16 (5-13); BLOOD UREA NITROGEN 23 mg/dl (7-20); CALCIUM 9.9 mg/dl (8.4-10.2); CARBON DIOXIDE 28 mmol/L (21-31); CHLORIDE 101 mmol/L (97-110); CREATININE 1.75 mg/dl (0.61-1.24); GLUCOSE 187 mg/dl (70-220); POTASSIUM 3.6 mmol/L (3.5-5.1); SODIUM 145 mmol/L (135-144)
[2018-05-15] MEDS: CHOLECALCIFEROL 1,000 UNIT TAB PO (08:55)
[2018-05-15] MEDS: BICALUTAMIDE 50 MG TAB PO (09:15)
[2018-05-16] MEDS: GUAIFENESIN/DM 5ML CUP PO ×3 (00:29→20:57)
[2018-05-16] MEDS: ALBUTEROL/IPRATROPIUM (NEB) 3 ML AMP HHN ×6 (01:17→20:02)
[2018-05-16] MEDS: METHYLPREDNISOLONE 125 MG INJ IV ×3 (05:40→21:07)
[2018-05-16] MEDS: PANTOPRAZOLE 40 MG INJ IV (05:40)
[2018-05-16] MEDS: PIPER-TAZO 3.375 GM IV (PMX) 100 ML IVPB ×2 (05:43→14:00)
[2018-05-16 06:01] LABS: ANION GAP 15 (5-13); BLOOD UREA NITROGEN 33 mg/dl (7-20); CALCIUM 9.8 mg/dl (8.4-10.2); CARBON DIOXIDE 28 mmol/L (21-31); CHLORIDE 100 mmol/L (97-110); CREATININE 1.96 mg/dl (0.61-1.24); GLUCOSE 148 mg/dl (70-220); POTASSIUM 3.6 mmol/L (3.5-5.1); SODIUM 143 mmol/L (135-144)
[2018-05-16] MEDS: CHOLECALCIFEROL 1,000 UNIT TAB PO (08:21)
[2018-05-16] MEDS: BICALUTAMIDE 50 MG TAB PO (08:25)
[2018-05-16] MEDS: AZITHROMYCIN 500MG/NS (PMX) 250 ML IVPB (11:18)
[2018-05-16 19:57] LABS: ADD UMIC YES; UR ASCORBIC ACID 40 mg/dL (NEGATIVE); UR BILIRUBIN (Dip) NEGATIVE (NEGATIVE); UR BLOOD (Dip) NEGATIVE (NEGATIVE); UR CLARITY CLEAR (CLEAR); UR COLOR YELLOW (YELLOW); UR GLUCOSE (Dip) NEGATIVE (NEGATIVE); UR KETONES (Dip) TRACE mg/dL (NEGATIVE); UR LEUKOCYTE ESTERASE (Dip) NEGATIVE Leu/ul (NEGATIVE); UR NITRITE (Dip) NEGATIVE (NEGATIVE); UR RBC 0 /HPF (0-5); UR SPECIFIC GRAVITY (Dip) 1.024 (1.003-1.030); UR TOTAL PROTEIN (Dip) 1+ mg/dl (NEGATIVE); UR UROBILINOGEN (Dip) NEGATIVE (NEGATIVE); UR WBC 0 /HPF (0-5)
[2018-05-16] MEDS: HEPARIN 5,000 UNIT/1 ML VIAL SC (20:59)
[2018-05-16] MEDS: PIPER-TAZO 2.25 GM/NS 50 ML IVPB (21:09)
[2018-05-17] MEDS: ALBUTEROL/IPRATROPIUM (NEB) 3 ML AMP HHN ×6 (01:09→20:12)
[2018-05-17 05:36] LABS: ADD MAN DIFF? NO
[2018-05-17 05:40] LABS: ABNORMAL IP MESSAGE 1; BASOPHILS % 0.1 % (0.0-2.0); HEMATOCRIT 28.2 % (42.0-52.0); HEMOGLOBIN 9.2 g/dl (14.0-18.0); LYMPHOCYTES # 0.4 10^3/ul (0.8-2.9); LYMPHOCYTES % 2.5 % (15.0-51.0); MEAN CORPUSCULAR HEMOGLOBIN 30.3 pg (29.0-33.0); MEAN CORPUSCULAR HGB CONC 32.6 g/dl (32.0-37.0); MEAN CORPUSCULAR VOLUME 92.8 fl (82.0-101.0); MEAN PLATELET VOLUME 9.4 fl (7.4-10.4); MONOCYTE # 0.7 10^3/ul (0.3-0.9); MONOCYTES % 4.4 % (0.0-11.0); NEUTROPHIL # 14.9 10^3/ul (1.6-7.5); NEUTROPHILS % 91.5 % (39.0-77.0); PLATELET COUNT 312 10^3/UL (140-415); POSITIVE DIFF @See below; RED BLOOD COUNT 3.04 10^6/ul (4.70-6.10); RED CELL DISTRIBUTION WIDTH 15.6 % (11.5-14.5)
[2018-05-17 05:40] LABS: WHITE BLOOD COUNT 16.2 10^3/ul (4.8-10.8)
[2018-05-17] MEDS: PANTOPRAZOLE (EC) 40 MG TAB PO (05:41)
[2018-05-17] MEDS: PIPER-TAZO 2.25 GM/NS 50 ML IVPB ×3 (05:41→21:22)
[2018-05-17] MEDS: METHYLPREDNISOLONE 125 MG INJ IV (05:41)
[2018-05-17 06:15] LABS: ANION GAP 10 (5-13); BLOOD UREA NITROGEN 44 mg/dl (7-20); CALCIUM 9.2 mg/dl (8.4-10.2); CARBON DIOXIDE 28 mmol/L (21-31); CHLORIDE 105 mmol/L (97-110); CREATININE 1.55 mg/dl (0.61-1.24); GLUCOSE 139 mg/dl (70-220); POTASSIUM 3.9 mmol/L (3.5-5.1); SODIUM 143 mmol/L (135-144)
[2018-05-17 06:31] LABS: PHOSPHORUS 4.9 mg/dl (2.5-4.9)
[2018-05-17 06:31] LABS: MAGNESIUM 2.3 mg/dl (1.7-2.5)
[2018-05-17] MEDS: CHOLECALCIFEROL 1,000 UNIT TAB PO (08:36)
[2018-05-17] MEDS: HEPARIN 5,000 UNIT/1 ML VIAL SC ×2 (08:38→21:21)
[2018-05-17] MEDS: BICALUTAMIDE 50 MG TAB PO (08:39)
[2018-05-17] MEDS: AZITHROMYCIN 500MG/NS (PMX) 250 ML IVPB (10:24)
[2018-05-17] MEDS: POLYETHYLENE GLYCOL 17 GM PACKET PO (16:33)
[2018-05-17] MEDS: GUAIFENESIN/DM 5ML CUP PO (21:20)
[2018-05-17] MEDS: ACETAMINOPHEN 325 MG TAB PO (21:20)
[2018-05-17] MEDS: TAMSULOSIN (SR) 0.4 MG CAP PO (21:21)
[2018-05-17] MEDS: METHYLPREDNISOLONE 40 MG INJ IV (21:21)
[2018-05-18] MEDS: ALBUTEROL/IPRATROPIUM (NEB) 3 ML AMP HHN ×6 (01:36→20:04)
[2018-05-18] MEDS: PIPER-TAZO 2.25 GM/NS 50 ML IVPB ×3 (05:12→21:43)
[2018-05-18] MEDS: PANTOPRAZOLE (EC) 40 MG TAB PO (05:13)
[2018-05-18 05:48] LABS: ADD MAN DIFF? NO
[2018-05-18 05:53] LABS: WHITE BLOOD COUNT 13.8 10^3/ul (4.8-10.8)
[2018-05-18 05:53] LABS: ABNORMAL IP MESSAGE 1; BASOPHILS % 0.1 % (0.0-2.0); EOSINOPHILS % 0.1 % (0.0-7.0); HEMATOCRIT 31.3 % (42.0-52.0); HEMOGLOBIN 9.9 g/dl (14.0-18.0); LYMPHOCYTES # 0.6 10^3/ul (0.8-2.9); LYMPHOCYTES % 4.3 % (15.0-51.0); MEAN CORPUSCULAR HEMOGLOBIN 29.4 pg (29.0-33.0); MEAN CORPUSCULAR HGB CONC 31.6 g/dl (32.0-37.0); MEAN CORPUSCULAR VOLUME 92.9 fl (82.0-101.0); MEAN PLATELET VOLUME 9.6 fl (7.4-10.4); MONOCYTE # 0.6 10^3/ul (0.3-0.9); MONOCYTES % 4.4 % (0.0-11.0); NEUTROPHILS % 87.1 % (39.0-77.0); NUCLEATED RED BLOOD CELLS% 0.2 /100WBC (0.0-0.0); PLATELET COUNT 334 10^3/UL (140-415); POSITIVE DIFF @See below; RED BLOOD COUNT 3.37 10^6/ul (4.70-6.10); RED CELL DISTRIBUTION WIDTH 15.5 % (11.5-14.5)
[2018-05-18 06:26] LABS: ANION GAP 8 (5-13); BLOOD UREA NITROGEN 45 mg/dl (7-20); CALCIUM 9.1 mg/dl (8.4-10.2); CARBON DIOXIDE 30 mmol/L (21-31); CHLORIDE 103 mmol/L (97-110); CREATININE 1.43 mg/dl (0.61-1.24); GLUCOSE 136 mg/dl (70-220); POTASSIUM 4.4 mmol/L (3.5-5.1); SODIUM 141 mmol/L (135-144)
[2018-05-18 07:11] LABS: PHOSPHORUS 4.4 mg/dl (2.5-4.9)
[2018-05-18 07:11] LABS: MAGNESIUM 2.3 mg/dl (1.7-2.5)
[2018-05-18] MEDS: CHOLECALCIFEROL 1,000 UNIT TAB PO (08:52)
[2018-05-18] MEDS: BICALUTAMIDE 50 MG TAB PO (08:53)
[2018-05-18] MEDS: METHYLPREDNISOLONE 40 MG INJ IV (08:54)
[2018-05-18] MEDS: HEPARIN 5,000 UNIT/1 ML VIAL SC ×2 (08:54→21:42)
[2018-05-18] MEDS: AZITHROMYCIN 500MG/NS (PMX) 250 ML IVPB (11:07)
[2018-05-18] MEDS: ACETAMINOPHEN 325 MG TAB PO (17:59)
[2018-05-18] MEDS: POLYETHYLENE GLYCOL 17 GM PACKET PO (18:00)
[2018-05-18] MEDS: DOCUSATE SODIUM 100 MG CAP PO ×2 (18:00→21:41)
[2018-05-18] MEDS: TAMSULOSIN (SR) 0.4 MG CAP PO (21:41)
[2018-05-18] MEDS: ZOLPIDEM 5 MG TAB PO (22:41)
[2018-05-19] MEDS: ALBUTEROL/IPRATROPIUM (NEB) 3 ML AMP HHN ×5 (01:31→16:23)
[2018-05-19 05:17] LABS: ABNORMAL IP MESSAGE 1; ADD MAN DIFF? NO; BASOPHIL # 0.1 10^3/ul (0.0-0.1); BASOPHILS % 0.4 % (0.0-2.0); EOSINOPHILS % 0.2 % (0.0-7.0); HEMATOCRIT 29.1 % (42.0-52.0); HEMOGLOBIN 9.2 g/dl (14.0-18.0); LYMPHOCYTES # 1.6 10^3/ul (0.8-2.9); LYMPHOCYTES % 13.3 % (15.0-51.0); MEAN CORPUSCULAR HEMOGLOBIN 29.5 pg (29.0-33.0); MEAN CORPUSCULAR HGB CONC 31.6 g/dl (32.0-37.0); MEAN CORPUSCULAR VOLUME 93.3 fl (82.0-101.0); MEAN PLATELET VOLUME 9.6 fl (7.4-10.4); MONOCYTE # 1.3 10^3/ul (0.3-0.9); MONOCYTES % 10.8 % (0.0-11.0); NEUTROPHIL # 8.5 10^3/ul (1.6-7.5); NUCLEATED RED BLOOD CELLS # 0.2 10^3/ul (0.0-0.0); NUCLEATED RED BLOOD CELLS% 1.2 /100WBC (0.0-0.0); PLATELET COUNT 291 10^3/UL (140-415); POSITIVE DIFF @See below; RED BLOOD COUNT 3.12 10^6/ul (4.70-6.10); RED CELL DISTRIBUTION WIDTH 15.3 % (11.5-14.5)
[2018-05-19 05:17] LABS: WHITE BLOOD COUNT 12.2 10^3/ul (4.8-10.8)
[2018-05-19] MEDS: PIPER-TAZO 2.25 GM/NS 50 ML IVPB ×2 (05:37→13:18)
[2018-05-19] MEDS: PANTOPRAZOLE (EC) 40 MG TAB PO (06:13)
[2018-05-19] MEDS: CHOLECALCIFEROL 1,000 UNIT TAB PO (08:53)
[2018-05-19] MEDS: METHYLPREDNISOLONE 40 MG INJ IV (08:53)
[2018-05-19] MEDS: POLYETHYLENE GLYCOL 17 GM PACKET PO (08:53)
[2018-05-19] MEDS: BICALUTAMIDE 50 MG TAB PO (08:54)
[2018-05-19] MEDS: HEPARIN 5,000 UNIT/1 ML VIAL SC (08:55)
[2018-05-19] MEDS: AZITHROMYCIN 500MG/NS (PMX) 250 ML IVPB (10:51)
[2018-05-19] MEDS: LACTULOSE 30ML CUP PO (13:18)
[2018-05-19] MEDS: BISACODYL 10 MG SUPP PR (13:19)
[2018-05-19] MEDS: ACETAMINOPHEN 325 MG TAB PO (14:37)
== END 2018-05-19 19:56 | DRG 190 ==
LOC: 6WM 19:15 → E/R 13:59 → PED 05-17 13:30 → PP2 05-17 14:14 → 6WM 17:00
DX: J44.0 Chronic obstructive pulmonary disease with (acute) lower respiratory infection (principal); J18.9 Pneumonia, unspecified organism; N17.9 Acute kidney failure, unspecified; I12.9 Hypertensive chronic kidney disease with stage 1 through stage 4 chronic kidney disease, or unspecified chronic kidney disease; N18.9 Chronic kidney disease, unspecified; Z99.81 Dependence on supplemental oxygen; Z85.46 Personal history of malignant neoplasm of prostate; Z86.11 Personal history of tuberculosis; Z87.891 Personal history of nicotine dependence; E78.5 Hyperlipidemia, unspecified; D64.9 Anemia, unspecified; J20.9 Acute bronchitis, unspecified; R09.02 Hypoxemia; R33.9 Retention of urine, unspecified; N40.1 Benign prostatic hyperplasia with lower urinary tract symptoms; M43.8X4 Other specified deforming dorsopathies, thoracic region
CPT/HCPCS: 36600; 71045; 71250; 80048; 80053; 81001; 82803; 82962; 83735; 83880; 84100; 84484; 85025; 85610; 85730; 87040; 87086; 87400; 93005; 94640; 94644; 94660; 94664; 96374; 97161; 99291-25

== ENCOUNTER 2018-06-03 19:43 | Inpatient (IN) | payer MEDICARE, OTHER ==
[2018-06-03] MEDS: ALBUTEROL 0.083% (NEB) 2.5 MG/3 ML AMP HHN (20:53)
[2018-06-03] MEDS: SOD CHLORIDE 0.9% 500 ML IV (21:01)
[2018-06-03] MEDS: CEFEPIME 1GM/50 ML (PMX) 50 ML IVPB (21:01)
[2018-06-03 21:12] LABS: ADD MAN DIFF? NO
[2018-06-03 21:16] LABS: ABNORMAL IP MESSAGE 1; BASOPHILS % 0.4 % (0.0-2.0); EOSINOPHILS # 0.7 10^3/ul (0.0-0.5); EOSINOPHILS % 6.8 % (0.0-7.0); HEMOGLOBIN 11.2 g/dl (14.0-18.0); LYMPHOCYTES # 0.6 10^3/ul (0.8-2.9); LYMPHOCYTES % 5.8 % (15.0-51.0); MEAN CORPUSCULAR HGB CONC 31.1 g/dl (32.0-37.0); MEAN CORPUSCULAR VOLUME 96.5 fl (82.0-101.0); MEAN PLATELET VOLUME 9.6 fl (7.4-10.4); MONOCYTE # 0.8 10^3/ul (0.3-0.9); MONOCYTES % 8.3 % (0.0-11.0); NEUTROPHIL # 7.7 10^3/ul (1.6-7.5); NEUTROPHILS % 78.2 % (39.0-77.0); PLATELET COUNT 203 10^3/UL (140-415); POSITIVE DIFF @See below; RED BLOOD COUNT 3.73 10^6/ul (4.70-6.10)
[2018-06-03 21:16] LABS: WHITE BLOOD COUNT 9.9 10^3/ul (4.8-10.8)
[2018-06-03 21:32] LABS: ALANINE AMINOTRANSFERASE 22 IU/L (13-69); ALBUMIN 4.1 g/dl (3.3-4.9); ALKALINE PHOSPHATASE 83 IU/L (42-121); ANION GAP 13 (5-13); ASPARTATE AMINO TRANSFERASE 27 IU/L (15-46); BILIRUBIN,INDIRECT 0.4 mg/dl (0-1.1); BILIRUBIN,TOTAL 0.4 mg/dl (0.2-1.3); BLOOD UREA NITROGEN 23 mg/dl (7-20); CALCIUM 9.4 mg/dl (8.4-10.2); CARBON DIOXIDE 30 mmol/L (21-31); CHLORIDE 98 mmol/L (97-110); CREATININE 1.64 mg/dl (0.61-1.24); GLUCOSE 110 mg/dl (70-220); POTASSIUM 4.7 mmol/L (3.5-5.1); SODIUM 141 mmol/L (135-144); TOTAL PROTEIN 7.5 g/dl (6.1-8.1)
[2018-06-03] MEDS: VANCOMYCIN 1 GM (PMX) 250 ML IVPB (22:05)
[2018-06-03] MEDS: DILTIAZEM 25 MG INJ IV (22:51)
[2018-06-03] MEDS: ONDANSETRON 4 MG INJ IV (23:13)
[2018-06-03] MEDS: morphine 4 MG/ML VIAL IV (23:14)
[2018-06-03 23:18] LABS: B-TYPE NATRIURETIC PEPTIDE 3660 PG/ML (0-450)
[2018-06-03] MEDS: DILTIAZEM-D5W 125MG/125ML DRIP 125 ML IV (23:18)
[2018-06-04] MEDS: LEVALBUTEROL (NEB) 1.25 MG/0.5 ML AMP INH (01:41)
[2018-06-04] MEDS ORDERED: ONDANSETRON 4 MG INJ IV ×2 (02:30→08:00)
[2018-06-04] MEDS ORDERED: ACETAMINOPHEN 325 MG TAB PO (02:30)
[2018-06-04 03:14] LABS: AADO2 Arterial 131.5 mmHg (7.0-24.0); Allen Test ACCEPTAB; Arterial Base Excess -0.1 mmol/L (-3.0-3); Arterial COHb 0.3 % (0.0-3.0); Arterial Fraction of Oxyhgb 98.3 % (93.0-99.0); Arterial HCO3 24.6 mmol/L (22.0-26.0); Arterial MetHb 0.4 % (0.0-1.5); Arterial pCO2 40.1 mmhg (35-45); Blood Gas IEPAP 15/5; Blood Gas PS 10; MODE MASK - BIPAP; Site Right Radial
[2018-06-04] MEDS ORDERED: AZITHROMYCIN 250 MG in SOD CHLORIDE 0.9% 250 ML IVPB (08:00)
[2018-06-04] MEDS: CEFTRIAXONE 1 GM/50 ML (PMX) 50 ML IVPB (09:05)
[2018-06-04] MEDS: METHYLPREDNISOLONE 40 MG INJ IV ×3 (09:09→17:52)
[2018-06-04] MEDS: ALBUTEROL/IPRATROPIUM (NEB) 3 ML AMP HHN ×4 (10:36→20:58)
[2018-06-04 10:43] LABS: AADO2 Arterial 93.3 mmHg (7.0-24.0); Allen Test ACCEPTAB; Arterial Base Excess -0.8 mmol/L (-3.0-3); Arterial Blood Gas Oxygen Sat 98.2 mmHG (95.0-100.0); Arterial COHb 0.1 % (0.0-3.0); Arterial Fraction of Oxyhgb 97.7 % (93.0-99.0); Arterial HCO3 24.5 mmol/L (22.0-26.0); Arterial MetHb 0.4 % (0.0-1.5); Arterial pCO2 43.1 mmhg (35-45); MODE NASAL CANNULA; Site Left Radial
[2018-06-04] MEDS: AZITHROMYCIN 250 MG in SOD CHLORIDE 0.9% 250 ML IVPB (11:05)
[2018-06-04] MEDS: DILTIAZEM-D5W 125MG/125ML DRIP 125 ML IV (12:51)
[2018-06-04] MEDS ORDERED: DILTIAZEM 25 MG INJ IV (14:00)
[2018-06-04] MEDS: DIGOXIN 500 MCG INJ IV (14:33)
[2018-06-04 15:16] LABS: INR 0.96; PROTIME 12.9 Sec (11.9-14.9)
[2018-06-04] MEDS: IPRATROPIUM 0.03% 30 ML NASAL SPRAY NASAL ×2 (16:00→21:00)
[2018-06-04 18:43] LABS: CREATINE KINASE 326 IU/L (23-200)
[2018-06-04 18:57] LABS: CK INDEX 2.9; CK-MB 9.33 ng/ml (0.0-2.4)
[2018-06-04] MEDS: DILTIAZEM (CD) 120 MG CAP PO (20:10)
[2018-06-05 01:11] LABS: CREATINE KINASE 266 IU/L (23-200)
[2018-06-05 01:24] LABS: CK INDEX 3.3; TROPONIN-I 0.047 ng/ml (0.000-0.120)
[2018-06-05 01:30] LABS: CK-MB 8.74 ng/ml (0.0-2.4)
[2018-06-05] MEDS: METHYLPREDNISOLONE 40 MG INJ IV ×4 (01:56→18:58)
[2018-06-05 05:32] LABS: AADO2 Arterial 108.3 mmHg (7.0-24.0); Allen Test ACCEPTAB; Arterial Base Excess -0.9 mmol/L (-3.0-3); Arterial COHb 0.4 % (0.0-3.0); Arterial Fraction of Oxyhgb 96.4 % (93.0-99.0); Arterial HCO3 23.7 mmol/L (22.0-26.0); Arterial MetHb 0.2 % (0.0-1.5); Blood Gas IEPAP 15/5; Blood Gas PS 10; MODE MASK - BIPAP; Site Right Radial
[2018-06-05 06:08] LABS: ADD MAN DIFF? NO
[2018-06-05] MEDS: PANTOPRAZOLE (EC) 40 MG TAB PO (06:09)
[2018-06-05 06:36] LABS: INR 1.06; PROTIME 13.9 Sec (11.9-14.9); PT RATIO 1.1
[2018-06-05 06:38] LABS: ABNORMAL IP MESSAGE 1; BASOPHILS % 0.2 % (0.0-2.0); HEMATOCRIT 31.7 % (42.0-52.0); HEMOGLOBIN 10.1 g/dl (14.0-18.0); LYMPHOCYTES # 0.5 10^3/ul (0.8-2.9); LYMPHOCYTES % 4.2 % (15.0-51.0); MEAN CORPUSCULAR HEMOGLOBIN 30.5 pg (29.0-33.0); MEAN CORPUSCULAR HGB CONC 31.9 g/dl (32.0-37.0); MEAN CORPUSCULAR VOLUME 95.8 fl (82.0-101.0); MEAN PLATELET VOLUME 9.5 fl (7.4-10.4); MONOCYTE # 0.5 10^3/ul (0.3-0.9); MONOCYTES % 4.1 % (0.0-11.0); NEUTROPHIL # 10.1 10^3/ul (1.6-7.5); NEUTROPHILS % 90.8 % (39.0-77.0); PLATELET COUNT 186 10^3/UL (140-415); POSITIVE DIFF @See below; RED BLOOD COUNT 3.31 10^6/ul (4.70-6.10); RED CELL DISTRIBUTION WIDTH 15.7 % (11.5-14.5)
[2018-06-05 06:38] LABS: WHITE BLOOD COUNT 11.1 10^3/ul (4.8-10.8)
[2018-06-05 06:43] LABS: CREATINE KINASE 205 IU/L (23-200)
[2018-06-05 06:55] LABS: CK INDEX 3.8
[2018-06-05 07:03] LABS: ANION GAP 12 (5-13); BLOOD UREA NITROGEN 28 mg/dl (7-20); CALCIUM 9.2 mg/dl (8.4-10.2); CARBON DIOXIDE 25 mmol/L (21-31); CHLORIDE 102 mmol/L (97-110); CREATININE 1.19 mg/dl (0.61-1.24); GLUCOSE 119 mg/dl (70-220); POTASSIUM 4.5 mmol/L (3.5-5.1); SODIUM 139 mmol/L (135-144)
[2018-06-05 07:14] LABS: CK-MB 7.76 ng/ml (0.0-2.4)
[2018-06-05] MEDS: CEFTRIAXONE 1 GM/50 ML (PMX) 50 ML IVPB (07:42)
[2018-06-05] MEDS: AZITHROMYCIN 250 MG in SOD CHLORIDE 0.9% 250 ML IVPB (08:26)
[2018-06-05 08:36] LABS: CHOL/HDL RATIO 2.4 RATIO; HDL CHOLESTEROL 77 mg/dl (31-75); LDL CHOLESTEROL,CALCULATED 95 mg/dl; TRIGLYCERIDES 72 mg/dl (0-149)
[2018-06-05 08:36] LABS: CHOLESTEROL 186 mg/dl (100-200)
[2018-06-05] MEDS ORDERED: ENOXAPARIN 40 MG/0.4 ML SYG SC (09:00)
[2018-06-05] MEDS: ALBUTEROL/IPRATROPIUM (NEB) 3 ML AMP HHN ×4 (09:11→19:58)
[2018-06-05] MEDS: DILTIAZEM (CD) 120 MG CAP PO (09:41)
[2018-06-05] MEDS: ENOXAPARIN 80 MG/0.8 ML SYG SC (10:00)
[2018-06-05] MEDS: DILTIAZEM-D5W 125MG/125ML DRIP 125 ML IV ×2 (12:30)
[2018-06-05] MEDS: IPRATROPIUM 0.03% 30 ML NASAL SPRAY NASAL ×3 (19:45→21:42)
[2018-06-05] MEDS: morphine 2 MG INJ IV (21:26)
[2018-06-05] MEDS: DILTIAZEM (CD) 180 MG CAP PO (21:26)
[2018-06-06] MEDS: METHYLPREDNISOLONE 40 MG INJ IV ×4 (00:25→18:04)
[2018-06-06] MEDS: PANTOPRAZOLE (EC) 40 MG TAB PO (05:44)
[2018-06-06 07:02] LABS: ADD MAN DIFF? NO
[2018-06-06 07:21] LABS: ABNORMAL IP MESSAGE 1; EOSINOPHILS % 0.1 % (0.0-7.0); HEMATOCRIT 33.1 % (42.0-52.0); HEMOGLOBIN 10.3 g/dl (14.0-18.0); LYMPHOCYTES # 0.5 10^3/ul (0.8-2.9); LYMPHOCYTES % 3.6 % (15.0-51.0); MEAN CORPUSCULAR HEMOGLOBIN 29.4 pg (29.0-33.0); MEAN CORPUSCULAR HGB CONC 31.1 g/dl (32.0-37.0); MEAN CORPUSCULAR VOLUME 94.6 fl (82.0-101.0); MEAN PLATELET VOLUME 9.8 fl (7.4-10.4); MONOCYTE # 0.5 10^3/ul (0.3-0.9); MONOCYTES % 3.9 % (0.0-11.0); NEUTROPHILS % 91.9 % (39.0-77.0); PLATELET COUNT 199 10^3/UL (140-415); POSITIVE DIFF @See below; RED CELL DISTRIBUTION WIDTH 15.8 % (11.5-14.5)
[2018-06-06 07:21] LABS: WHITE BLOOD COUNT 13.1 10^3/ul (4.8-10.8)
[2018-06-06 07:44] LABS: PHOSPHORUS 3.2 mg/dl (2.5-4.9)
[2018-06-06 07:44] LABS: MAGNESIUM 2.5 mg/dl (1.7-2.5)
[2018-06-06 07:47] LABS: ANION GAP 13 (5-13); BLOOD UREA NITROGEN 40 mg/dl (7-20); CALCIUM 9.2 mg/dl (8.4-10.2); CARBON DIOXIDE 24 mmol/L (21-31); CHLORIDE 103 mmol/L (97-110); CREATININE 1.27 mg/dl (0.61-1.24); GLUCOSE 122 mg/dl (70-220); SODIUM 140 mmol/L (135-144)
[2018-06-06] MEDS: CEFTRIAXONE 1 GM/50 ML (PMX) 50 ML IVPB (08:45)
[2018-06-06] MEDS: FUROSEMIDE 20 MG INJ IV (08:49)
[2018-06-06] MEDS: IPRATROPIUM 0.03% 30 ML NASAL SPRAY NASAL ×2 (08:51→20:39)
[2018-06-06] MEDS: DILTIAZEM (CD) 180 MG CAP PO ×2 (08:52→20:38)
[2018-06-06] MEDS: AZITHROMYCIN 250 MG in SOD CHLORIDE 0.9% 250 ML IVPB (09:05)
[2018-06-06] MEDS: ALBUTEROL/IPRATROPIUM (NEB) 3 ML AMP HHN ×4 (09:30→20:46)
[2018-06-06] MEDS: ENOXAPARIN 80 MG/0.8 ML SYG SC (09:39)
[2018-06-06] MEDS: morphine 2 MG INJ IV (20:52)
[2018-06-06] MEDS: LORAZEPAM 2 MG INJ IV (22:13)
[2018-06-07] MEDS: METHYLPREDNISOLONE 40 MG INJ IV ×4 (00:15→21:17)
[2018-06-07] MEDS: morphine 2 MG INJ IV ×2 (00:16→16:25)
[2018-06-07] MEDS: PANTOPRAZOLE (EC) 40 MG TAB PO (05:53)
[2018-06-07 06:11] LABS: ANION GAP 10 (5-13); BLOOD UREA NITROGEN 57 mg/dl (7-20); CARBON DIOXIDE 29 mmol/L (21-31); CHLORIDE 102 mmol/L (97-110); CREATININE 1.35 mg/dl (0.61-1.24); GLUCOSE 153 mg/dl (70-220); POTASSIUM 3.8 mmol/L (3.5-5.1); SODIUM 141 mmol/L (135-144)
[2018-06-07] MEDS: CEFTRIAXONE 1 GM/50 ML (PMX) 50 ML IVPB (08:43)
[2018-06-07] MEDS: DILTIAZEM (CD) 180 MG CAP PO ×2 (09:00→20:33)
[2018-06-07] MEDS: IPRATROPIUM 0.03% 30 ML NASAL SPRAY NASAL ×2 (09:01→20:34)
[2018-06-07] MEDS: ENOXAPARIN 80 MG/0.8 ML SYG SC (09:02)
[2018-06-07] MEDS: AZITHROMYCIN 250 MG in SOD CHLORIDE 0.9% 250 ML IVPB (09:38)
[2018-06-07] MEDS: ALBUTEROL/IPRATROPIUM (NEB) 3 ML AMP HHN ×4 (10:10→21:00)
[2018-06-07] MEDS: LORAZEPAM 2 MG INJ IV (21:25)
[2018-06-08] MEDS: PANTOPRAZOLE (EC) 40 MG TAB PO (06:20)
[2018-06-08] MEDS: METHYLPREDNISOLONE 40 MG INJ IV (06:20)
[2018-06-08] MEDS: DILTIAZEM (CD) 180 MG CAP PO (08:08)
[2018-06-08] MEDS: IPRATROPIUM 0.03% 30 ML NASAL SPRAY NASAL (08:09)
[2018-06-08] MEDS: CEFTRIAXONE 1 GM/50 ML (PMX) 50 ML IVPB (08:13)
[2018-06-08] MEDS: ENOXAPARIN 80 MG/0.8 ML SYG SC (08:26)
[2018-06-08] MEDS: ALBUTEROL/IPRATROPIUM (NEB) 3 ML AMP HHN ×2 (09:00→17:42)
[2018-06-08] MEDS: AZITHROMYCIN 250 MG in SOD CHLORIDE 0.9% 250 ML IVPB (09:25)
[2018-06-08] MEDS ORDERED: ATROPINE 1% 5 ML OPH SL (11:30)
[2018-06-08] MEDS ORDERED: BISACODYL 10 MG SUPP PR (11:30)
[2018-06-08] MEDS ORDERED: ONDANSETRON 4 MG INJ IV (11:30)
[2018-06-08] MEDS: SCOPOLAMINE 1.5 MG PATCH TRANSDERM (12:44)
[2018-06-08] MEDS: morphine (DRIP) 100 MG/100 ML 100 ML IV (13:10)
[2018-06-08] MEDS: LORAZEPAM 2 MG INJ IV (18:23)
[2018-06-08] MEDS: ZOLPIDEM 5 MG TAB PO (22:36)
[2018-06-10] MEDS: ATROPINE 1% 5 ML OPH SL ×2 (03:38→05:48)
[2018-06-10] MEDS: morphine (DRIP) 100 MG/100 ML 100 ML IV (04:27)
[2018-06-10] MEDS: LORAZEPAM 2 MG INJ IV ×2 (10:43→18:35)
[2018-06-11] MEDS: morphine (DRIP) 100 MG/100 ML 100 ML IV (01:22)
[2018-06-11] MEDS: LORAZEPAM 2 MG INJ IV (03:01)
== END 2018-06-11 09:25 | disposition expired | DRG 189 ==
LOC: E/R 19:43 → 6WM 06-04 02:04
PROC: 5A09557 Assistance with Respiratory Ventilation, Greater than 96 Consecutive Hours, Continuous Positive Airway Pressure (ICD-10-PCS; principal; 2018-06-04)
DX: J96.21 Acute and chronic respiratory failure with hypoxia (principal); I13.0 Hypertensive heart and chronic kidney disease with heart failure and stage 1 through stage 4 chronic kidney disease, or unspecified chronic kidney disease; J44.1 Chronic obstructive pulmonary disease with (acute) exacerbation; N17.9 Acute kidney failure, unspecified; J98.19 Other pulmonary collapse; I50.9 Heart failure, unspecified; Z66 Do not resuscitate; C61 Malignant neoplasm of prostate; Z51.5 Encounter for palliative care; N18.3 Chronic kidney disease, stage 3 (moderate); B90.9 Sequelae of respiratory and unspecified tuberculosis; Z99.81 Dependence on supplemental oxygen; I48.0 Paroxysmal atrial fibrillation
CPT/HCPCS: 36415; 36600; 71045; 80048; 80053; 80061; 82550; 82553; 82803; 83735; 83880; 84100; 84443; 84484; 85025; 85610; 85730; 87040; 87400; 93005; 94640; 94644; 94660; 94664; 96374; 96375; 99285-25